=== PATIENT | male | born 1970 | race Hispanic/Latino ===

== ENCOUNTER 2020-07-21 16:50 | Emergency (ER) | payer OTHER ==
[2020-07-21 18:13] LABS: Absolute Lymphocytes (CBC) 1.9 K/uL (0.7-4.9); Basophils % 0.5 % (0-1.3); Hematocrit 42.6 % (39.6-49.0); Lymphocytes % 41.8 % (15.3-44.8); MPV 10.7 fL (7.6-11.3); RBC Red Blood Cell Count 4.64 M/uL (4.33-5.43)
[2020-07-21 18:16] LABS: ALT/SGPT 31 U/L (12-78); AST/SGOT 24 U/L (15-37); Albumin 3.6 g/dL (3.4-5.0); Alkaline Phosphatase 76 U/L (45-117); BUN Blood Urea Nitrogen 14 mg/dL (7-18); Bicarbonate 31 mmol/L (21-32); Bilirubin Direct 0.2 mg/dL (0-0.2); Bilirubin Total 0.6 mg/dL (0.2-1.0); Ferritin 209.8 ng/mL (26-388); Glucose Level 285 mg/dL (74-106); Lipase 80 U/L (73-393); NT PRO-BNP 76 pg/mL (<125); Potassium 4.3 mmol/L (3.5-5.1); Sodium Level 140 mmol/L (136-145); Troponin (Emerg Dept Use Only) < 0.02 ng/mL (0.0-0.045)
--- NOTE | 2020-07-21 18:39 | RAD REPORT ---
EXAM DESCRIPTION: RAD - Chest Single View - 07/21/2020 6:25 pm CLINICAL HISTORY: DYSPNEA Chest pain. COMPARISON: No comparisons FINDINGS: Portable technique limits examination quality. Mild vague opacities are present in both lungs, greatest in the left mid lung laterally, suspicious f or interstitial pneumonia/viral bronchitis. The heart is normal in size. No displaced fractures.
--- NOTE | 2020-07-21 18:48 | ER ---
Nurse's Notes [facility] Name: Fahad Martinez Age: 49 yrs Sex: Male : 1970 Arrival Date: 07/21/2020 Time: 16:53 Bed 6 Private MD: Diagnosis: Pneumonia, unspecified organism Presentation: 07/21 16:55 Chief complaint: Patient states: chest pain when taking a deep breath in, SOB on aa5 exertion, fatigue, decreased appetite, and diarrhea x 2-3 days ago. Pt also reports chills and fever up to 102.0F. Denies cough. 16:55 Acuity: ESTHER 3 aa5 16:55 Method Of Arrival: Ambulatory aa5 16:55 Coronavirus screen: chills, diarrhea, shortness of breath, Client presents with at aa5 least one sign or symptom that may indicate coronavirus-19. Standard/surgical mask placed on the client. Provider contacted for isolation considerations. Ebola Screen: Patient negative for fever greater than or equal to 101.5 degrees Fahrenheit, and additional compatible Ebola Virus Disease symptoms. Initial Sepsis Screen: Does the patient meet any 2 criteria? No. Patient's initial sepsis screen is negative. Does the patient have a suspected source of infection? No. Patient's initial sepsis screen is negative. Risk Assessment: Do you want to hurt yourself or someone else? Patient reports no desire to harm self or others. Onset of symptoms was June 2020. Triage Assessment: 17:00 General: Appears in no apparent distress. uncomfortable, Behavior is cooperative, bp appropriate for age, anxious. Pain: Complains of pain in chest. EENT: No deficits noted. Neuro: No deficits noted. Cardiovascular: Reports chest pain. Respiratory: Reports shortness of breath. GI: No signs and/or symptoms were reported involving the gastrointestinal system. : No signs and/or symptoms were reported regarding the genitourinary system. Derm: No deficits noted. Musculoskeletal: No deficits noted. Historical: - Allergies: 17:00 No Known Allergies; aa5 - PMHx: 17:00 Hypertension; Diabetes - NIDDM; aa5 - PSHx: 17:00 right hand; aa5 - Immunization history:: Adult Immunizations unknown. - Social history:: Smoking status: Patient denies any tobacco usage or history of. - Family history:: not pertinent. - Hospitalizations: : No recent hospitalization is reported. Screenin:00 Abuse screen: Denies threats or abuse. Denies injuries from another. Nutritional bp screening: No deficits noted. Tuberculosis screening: No symptoms or risk factors identified. Fall Risk None identified. Assessment: 17:00 General: SEE TRIAGE NOTE. bp 19:02 Reassessment: PT D/C HOME AMBULATORY, DX WITH COMMUNITY ACQUIRED PNEUMONIA. bp Vital Signs: 16:55 BP 163 / 90; Pulse 69; Resp 18 S; Temp 98.2(O); Pulse Ox 99% on R/A; Weight 104.33 kg aa5 (R); Height 5 ft. 7 in. (170.18 cm) (R); Pain 0/10; 17:45 BP 178 / 102; Pulse 66; Resp 16; Pulse Ox 100% ; bp 19:02 BP 177 / 88; Pulse 68; Resp 17; Temp 98.5; Pulse Ox 100% ; bp 16:55 Body Mass Index 36.02 (104.33 kg, 170.18 cm) aa5 ED Course: 16:53 Patient arrived in ED. as 16:58 Arm band placed on. aa5 16:59 Triage completed. aa5 17:00 Patient has correct armband on for positive identification. Bed in low position. Call bp light in reach. Side rails up X2. environmental monitoring specialist on. Pulse ox on. NIBP on. 17:03 Mick Levin MD is Attending Physician. rn 17:08 Andrea Mckay, ROGELIO is Primary Nurse. bp 17:45 Inserted saline lock: 20 gauge in right forearm, using aseptic technique. Blood bp collected. Patient maintains SpO2 saturation greater than 95% on room air. 18:25 XRAY Chest (1 view) In Process Unspecified. EDMS 19:04 No provider procedures requiring assistance completed. IV discontinued, intact, bp bleeding controlled, No redness/swelling at site. Pressure dressing applied. Administered Medications: No medications were administered Outcome: 18:47 Discharge ordered by . rn 19:04 Discharged to home ambulatory. bp 19:04 Condition: stable 19:04 Discharge instructions given to patient, Instructed on discharge instructions, follow up and referral plans. medication usage, Demonstrated understanding of instructions, follow-up care, medications, Prescriptions given X 3. 19:05 Patient left the ED. bp Signatures: Dispatcher [employer] EDMS Dorcas Santa as Levin, Mick, MD MD rn Leela Quintanilla RN RN aa5 Andrea Mckay RN RN bp Corrections: (The following items were deleted from the chart) 17:01 16:55 Chief complaint: Patient states: chest pain on exertion, SOB on exertion, aa5 fatigue, decreased appetite, and diarrhea x 2-3 days ago. Pt also reports chills and fever up to 102.0F. Denies cough. aa5
--- NOTE | 2020-07-21 18:48 | EDPHYS ---
Physician Documentation [facility] Name: Fahad Martinez Age: 49 yrs Sex: Male : 1970 Arrival Date: 07/21/2020 Time: 16:53 Bed 6 Private MD: ED Physician Mick Levin HPI: 07/21 17:26 This 49 yrs old Male presents to ER via Ambulatory with complaints of Chest rn Pressure - on exertion. 17:26 The patient or guardian reports chest pain that is located primarily in the substernal rn area. Onset: at an unknown time. The pain does not radiate. The chest pain is described as a heaviness. Duration: The patient or guardian reports multiple episodes, that are intermittent. Modifying factors: The symptoms are alleviated by nothing. the symptoms are aggravated by exertion. Severity of pain: At its worst the pain was mild in the emergency department the pain has improved. The patient has not experienced similar symptoms in the past. Reports 1 week of fever/fatigue/nausea/diarrhea, feels better except that now having chest heaviness with exertion. Only coughs with deep breath. No more fever or diarrhea. No abd pain. Normal taste/smell. No runny nose or sore throat. No headache. . Historical: - Allergies: 17:00 No Known Allergies; aa5 - PMHx: 17:00 Hypertension; Diabetes - NIDDM; aa5 - PSHx: 17:00 right hand; aa5 - Immunization history:: Adult Immunizations unknown. - Social history:: Smoking status: Patient denies any tobacco usage or history of. - Family history:: not pertinent. - Hospitalizations: : No recent hospitalization is reported. ROS: 17:26 Constitutional: + fever and chills, improving Eyes: Negative for injury, pain, redness, rn and discharge, Neck: Negative for injury, pain, and swelling, Cardiovascular: Negative for palpitations, and edema, Respiratory: Negative for wheezing, and pleuritic chest pain, Abdomen/GI: Negative for abdominal pain, nausea, vomiting, and constipation, MS/Extremity: Negative for injury and deformity, Skin: Negative for injury, rash, and discoloration, Neuro: Negative for headache, numbness, tingling, and seizure. Exam: 17:26 Constitutional: This is a well developed, well nourished patient who is awake, alert, rn and in no acute distress. Ambulatory to room without difficulty. Head/Face: Normocephalic, atraumatic. Eyes: Pupils equal round and reactive to light, extra-ocular motions intact. Lids and lashes normal. Conjunctiva and sclera are non-icteric and not injected. Cornea within normal limits. Periorbital areas with no swelling, redness, or edema. Cardiovascular: Regular rate and rhythm. No pulse deficits. Respiratory: Speaking full sentences. No increased work of breathing, no retractions or nasal flaring. Abdomen/GI: Soft, non-tender Skin: Warm, dry MS/ Extremity: Pulses equal, no cyanosis. Neuro: Awake and alert, GCS 15 18:26 ECG was reviewed by the Attending Physician. rn Vital Signs: 16:55 BP 163 / 90; Pulse 69; Resp 18 S; Temp 98.2(O); Pulse Ox 99% on R/A; Weight 104.33 kg aa5 (R); Height 5 ft. 7 in. (170.18 cm) (R); Pain 0/10; 17:45 BP 178 / 102; Pulse 66; Resp 16; Pulse Ox 100% ; bp 19:02 BP 177 / 88; Pulse 68; Resp 17; Temp 98.5; Pulse Ox 100% ; bp 16:55 Body Mass Index 36.02 (104.33 kg, 170.18 cm) aa5 MDM: 17:03 Patient medically screened. rn 18:46 Differential diagnosis: acute pericarditis, anxiety, pneumonia, pneumothorax, COVID-19. rn Data reviewed: vital signs, nurses notes, lab test result(s), EKG, radiologic studies, plain films, and as a result, I will discharge patient. Counseling: I had a detailed discussion with the patient and/or guardian regarding: the historical points, exam findings, and any diagnostic results supporting the discharge/admit diagnosis, lab results, radiology results, the need for outpatient follow up, to return to the emergency department if symptoms worsen or persist or if there are any questions or concerns that arise at home. Response to treatment: the patient's symptoms have mildly improved after treatment, and as a result, I will discharge patient. Special discussion: I discussed with the patient/guardian in detail that at this point there is no indication for admission to the hospital. It is understood, however, that if the symptoms persist or worsen the patient needs to return immediately for re-evaluation. ED course: Pt with mild bilateral infiltrates, COVID sent, ferritin and procal neg, will dc home with abx and pcp f/u. . 07/21 17:21 Order name: Basic Metabolic Panel; Complete Time: 18:25 rn 07/21 17:21 Order name: CBC with Diff; Complete Time: 18:25 rn 07/21 17:21 Order name: Hepatic Function; Complete Time: 18:25 rn 07/21 17:21 Order name: Lipase; Complete Time: 18:25 rn 07/21 17:21 Order name: Troponin (emerg Dept Use Only); Complete Time: 18:25 rn 07/21 17:21 Order name: COVID-19 rn 07/21 17:21 Order name: IV Saline Lock; Complete Time: 17:47 rn 07/21 17:21 Order name: Labs collected and sent; Complete Time: 17:47 rn 07/21 17:21 Order name: EKG; Complete Time: 17: rn 07/21 17:21 Order name: EKG - Nurse/Tech; Complete Time: 17:47 rn 07/21 17:21 Order name: BNP; Complete Time: 18:25 rn 07/21 17:21 Order name: XRAY Chest (1 view); Complete Time: 18:41 rn 07/21 17:21 Order name: Ferritin; Complete Time: 18:25 rn 07/21 17:21 Order name: Procalcitonin; Complete Time: 18:25 rn EC:26 Rate is 66 beats/min. Rhythm is regular. QRS Picher is Normal. MA interval is normal. QRS rn interval is normal. QT interval is normal. No Q waves. T waves are Normal. No ST changes noted. Clinical impression: Normal ECG. Interpreted by me. Reviewed by me. Administered Medications: No medications were administered Disposition: 07/21/20 18:47 Discharged to Home. Impression: Pneumonia, unspecified organism. - Condition is Stable. - Discharge Instructions: Community-Acquired Pneumonia, Adult. - Prescriptions for dexamethasone 6 mg Oral tablet - take 6 milligrams by ORAL route once daily for 10 days; 10 tablet. Levaquin 750 mg Oral Tablet - take 1 tablet by ORAL route once daily for 10 days; 10 tablet. Albuterol Sulfate 90 mcg/actuation - inhale 1-2 puff by INHALATION route every 4-6 hours; 1 Inhaler. - Medication Reconciliation Form, Thank You Letter, Antibiotic Education, Prescription Opioid Use form. - Follow up: Private Physician; When: As needed; Reason: Recheck today's complaints, Re-evaluation by your physician. - Problem is new. - Symptoms have improved. Addendum: 07/25/2020 16:33 Addendum: Called twice today with no answer, finally reached him at 1633, notified of + r n COVID-19 test results, feels better, will quarantine at home and return precautions given/understood. . Signatures: Dispatcher [employer] EDMS Mick Levin MD MD rn Calderon, Audri RN RN aa5 Andrea Mckay RN RN bp Corrections: (The following items were deleted from the chart) 07/21 19:05 18:47 07/21/2020 18:47 Discharged to Home. Impression: Pneumonia, unspecified organism. bp Condition is Stable. Forms are Medication Reconciliation Form, Thank You Letter, Antibiotic Education, Prescription Opioid Use. Follow up: Private Physician; When: As needed; Reason: Recheck today's complaints, Re-evaluation by your physician. Problem is new. Symptoms have improved. rn
--- NOTE | 2020-07-23 05:50 | EKG ---
Test Date: 2020-07-21 Test Time: 17:42:07 Dump Worker: MOLLY MEASUREMENT RESULTS: Intervals: Rate: 66 MI: 176 QRSD: 88 QT: 382 QTc: 400 [place]: P: 11 MI: 176 QRS: 91 T: 56 INTERPRETIVE STATEMENTS: Normal sinus rhythm Rightward axis Borderline ECG No previous ECG available for comparison Electronically Signed On 07-23-20 05:45:39 CDT by Jhonny Deluca
[2020-07-26 03:54] VITALS: O2SAT 100
[2020-07-26 03:55] VITALS: BP 177/88; TEMP 98.5
== END 2020-07-21 19:05 | disposition home or self-care (01) ==
LOC: ER 16:50
DX: U07.1 COVID-19 (principal); J18.9 Pneumonia, unspecified organism
CPT/HCPCS: 93005; 85025; 80048; 36415; 80076; 84484; 82728; 83690; 84145; 83880; 71045; 99285; U0002